=== PATIENT | male | born 1965 | race African-American/Black ===

== ENCOUNTER 2022-10-03 17:35 | Emergency (ER) | payer MEDICAID ==
[~2022-10-03] VITALS: Ht 182.9 cm; Wt 80.0 kg
[2022-10-03 17:37] VITALS: BP 111/71
[2022-10-04 00:01] LABS: HEMATOCRIT. 41.6 % (42.0-52.0); HEMOGLOBIN. 13.9 g/dL (14.0-18.0); MEAN CORPUSCULAR HEMOGLOBIN 31.4 pg (28.0-32.0); MEAN CORPUSCULAR VOLUME 94.1 fL (80.0-94.0); MEAN PLATELET VOLUME 7.5 fl (7.4-10.4); PLATELET 267 x1000/uL (130-400); RED BLOOD CELL COUNT 4.42 mill/uL (4.7-6.1)
[2022-10-04 00:05] LABS: CHLORIDE 102 mEq/L (98-107)
[2022-10-04] MEDS ORDERED: DOXY100C5 MT (02:07)
[2022-10-04] MEDS ORDERED: IBUP-2029 MT (02:07)
[2022-10-04 07:24] LABS: PLATELET ESTIMATE NORMAL
== END 2022-10-04 02:34 | disposition left against medical advice (07) ==
LOC: ER 17:35
DX: R07.89 Other chest pain (principal); M54.50 Low back pain, unspecified; R05.8 Other specified cough; M43.6 Torticollis; R50.9 Fever, unspecified; R94.31 Abnormal electrocardiogram [ECG] [EKG]
CPT/HCPCS: 36415; 71045; 80053; 83880; 84484; 85025; 93005; 99285